=== PATIENT | male | born 1995 | race Caucasian/White ===

== ENCOUNTER 2025-04-12 15:14 | Inpatient (IN) | payer OTHER ==
[2025-04-12 15:35] VITALS: BMI 22.7
[2025-04-12] MEDS ORDERED: MAGNESIUM HYDROX 2400MG/30ML ORAL SUSPENSION 30 ML CUP PO PRN (15:51)
[2025-04-12] MEDS ORDERED: ACETAMINOPHEN 325 MG TABLET (FP) PO PRN (15:51)
[2025-04-12] MEDS ORDERED: LOPERAMIDE HCL 2 MG CAPSULE PO PRN (15:51)
[2025-04-12] MEDS ORDERED: BISMUTH SUBSALICYLATE 524 MG/30 ML PO PRN (15:51)
[2025-04-12] MEDS ORDERED: POLYETHYLENE GLYCOL (HEALTHYLAX) 3350 17 GM PACKET PO PRN (15:51)
[2025-04-12] MEDS ORDERED: MAG HYDROX/AL HYDROX/SIMETH 30 ML UNIT-DOSE CUP PO PRN (15:51)
[2025-04-12] MEDS ORDERED: IBUPROFEN 600 MG TABLET (FP) PO PRN (15:51)
[2025-04-12] MEDS ORDERED: BENZOCAINE/MENTHOL (CHLORASEPTIC ) LOZENGE MM PRN (15:51)
[2025-04-12] MEDS ORDERED: DICYCLOMINE HCL 10 MG CAPSULE PO PRN (15:51)
[2025-04-12] MEDS ORDERED: IBUPROFEN 400 MG TABLET (FP) PO PRN (15:51)
[2025-04-12] MEDS ORDERED: guaiFENesin 600 MG TABLET.ER (FP) PO PRN (15:51)
[2025-04-12] MEDS ORDERED: BENZONATATE 200 MG CAPSULE PO PRN (15:51)
[2025-04-12] MEDS ORDERED: ONDANSETRON *ODT* 4 MG TABLET SL PRN (15:51)
[2025-04-12] MEDS ORDERED: NALOXONE (NARCAN) HCL 4 MG/0.1 ML SPRAY NS PRN (15:51)
[2025-04-12] MEDS ORDERED: PRENATAL VITAMINS W/ FOLIC ACID TABLET (FP) PO ONE (17:55)
[2025-04-12] MEDS: PRENATAL VITAMINS W/ FOLIC ACID TABLET (FP) PO SCH (17:57)
[2025-04-12] MEDS: THIAMINE 100 MG TABLET PO SCH (23:07)
[2025-04-12] MEDS: MELATONIN 5 MG TABLETS PO SCH (23:07)
[2025-04-13] MEDS: NICOTINE 14 MG/24 HOURS TOPICAL PATCH TD SCH (10:57)
[2025-04-13] MEDS: DEXTROAMPHETAMINE/AMPHETAMINE 10 MG CAP.ER.24H PO SCH (10:59)
[2025-04-13 13:16] LABS: MCHC 29.4 g/dl (32.3-36.5); MEAN CELL VOLUME 75.7 fl (79.0-92.2); MEAN PLT VOLUME 10.3 fl (9.4-12.4); RDW 16.0 % (12.0-15.6)
[2025-04-13 13:46] LABS: CO2 34 mmol/L (21-32); GLUCOSE,RANDOM 80 mg/dL (74-106)
[2025-04-13 13:49] LABS: CREATININE 1.1 mg/dL (0.55-1.3); SGOT/AST 21 U/L (15-37); SGPT/ALT 37 U/L (13-61)
[2025-04-13 13:50] LABS: TOT PROT 6.4 g/dl (6.4-8.2)
[2025-04-13 13:52] LABS: ALK PHOS 55 U/L (45-117)
[2025-04-13] MEDS: hydrOXYzine PAMOATE 25 MG CAPSULE (FP) PO PRN (17:22)
[2025-04-13] MEDS: METHOCARBAMOL 500 MG TABLET PO PRN (17:22)
[2025-04-14] MEDS: GABAPENTIN 300 MG CAPSULE PO SCH (10:31)
[2025-04-15 09:02] LABS: ABSOLUTE IMMATURE GRANULOCYTES 0.02 x10^3/uL (0.0-0.031); BASOPHILS # 0.03 x10^3/uL (0.01-0.08); EOSINOPHIL % 0.6 % (0.8-7.0); EOSINOPHILS # 0.05 x10^3/uL (0.04-0.54); MCHC 30.2 g/dl (32.3-36.5); MEAN CELL VOLUME 73.9 fl (79.0-92.2); MEAN PLT VOLUME 9.8 fl (9.4-12.4); MONOCYTE # 0.55 x10^3/uL (0.30-0.82); MONOCYTE % 7.1 % (5.3-12.2); RDW 16.2 % (12.0-15.6)
[2025-04-15] MEDS: DEXTROAMPHETAMINE/AMPHETAMINE 10 MG CAP.ER.24H PO ONE ×2 (10:41→10:45)
[2025-04-16 08:37] VITALS: RESP 16
[2025-04-16 09:52] VITALS: BP 123/61; PULSE 72; TEMP 98
[2025-04-16] MEDS: DEXTROAMPHETAMINE/AMPHETAMINE 10 MG CAP.ER.24H PO SCH (10:13)
== END 2025-04-16 09:15 | disposition home or self-care (01) | DRG 774 ==
LOC: YASAS 15:14 → Y6N 17:33
PROVIDERS: ADMIT Neuromusculoskeletal Medicine & OMM; ATTEND Allergy & Immunology
PROC: HZ2ZZZZ Detoxification Services for Substance Abuse Treatment (ICD-10-PCS; principal; 2025-04-12)
DX: F10.230 Alcohol dependence with withdrawal, uncomplicated (principal); F14.20 Cocaine dependence, uncomplicated; F12.20 Cannabis dependence, uncomplicated; F41.8 Other specified anxiety disorders; F43.10 Post-traumatic stress disorder, unspecified; F90.9 Attention-deficit hyperactivity disorder, unspecified type; F25.9 Schizoaffective disorder, unspecified; F17.210 Nicotine dependence, cigarettes, uncomplicated; G47.00 Insomnia, unspecified; M26.609 Unspecified temporomandibular joint disorder, unspecified side
CPT/HCPCS: 36415; 80053; 80305; 80307; 85025; 85027; 86780; 93005; 93010